=== PATIENT | female | born 1990 | race African-American/Black ===

== ENCOUNTER 2020-04-06 16:36 | Emergency (ER) | payer MEDICAID ==
[~2020-04-06] VITALS: Ht 167.6 cm; Wt 71.0 kg
[2020-04-06 16:39] VITALS: BP 114/74
== END 2020-04-06 18:26 | disposition home or self-care (01) ==
LOC: ER 16:36
DX: U07.1 COVID-19 (principal); R06.03 Acute respiratory distress
CPT/HCPCS: 71045; 81025; 93005; 99283